=== PATIENT | male | born 1980 | race African-American/Black ===

== ENCOUNTER 2021-04-24 21:09 | Emergency (ER) | payer OTHER ==
[~2021-04-24] VITALS: Ht 180.3 cm; Wt 99.8 kg
[2021-04-24] MEDS ORDERED: Percocet 5-3251 EACH PO (23:47)
[2021-04-24] MEDS ORDERED: IBUP600 PO (23:50)
== END 2021-04-25 00:27 | disposition home or self-care (01) ==
LOC: ER 21:09
DX: S76.112A Strain of left quadriceps muscle, fascia and tendon, initial encounter (principal); V00.111A Fall from in-line roller-skates, initial encounter
CPT/HCPCS: 29505; 73562-LT; 96374-59; 96375-59; 99283-25; J2270; J2405; J7030